=== PATIENT | female | born 1995 | race Caucasian/White ===

== ENCOUNTER 2022-04-17 12:00 | Outpatient (RCR) | payer BC, SELFPAY ==
[2022-03-31 12:19] VITALS: BMI 30.4
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
--- NOTE | 2022-04-02 16:43 | PC.NURSE ---
Case opened in treatment team.
--- NOTE | 2022-04-02 17:06 | PC.NURSE ---
I called and spoke with pt. Reviewed treatment plan. He said groups are going well, and that he continues to have the same depressive symptoms that he did when he started. Discussed aftercare. Pt said he has an appointment at [place] for [employer] in May, and that he has been told he wont get in with a med provider until 3 visits with the therapist. I agreed to attempt to get him in faster, as he is in [facility].
--- NOTE | 2022-04-06 12:10 | P.PNPSP_ITS ---
Subjective Subjective Date of Service: 04/06/22 Reason For Visit: bipolar Medical Problems Affecting Mental Status: No Interim History: Describes mood as ?not that great, about the same ?. Took Seroquel only 2 nights, reports side effects, ?made me feel really drugged, nauseous, with a headache ?. Continues with depressed mood, anxiety. States not finding PHP to be helpful. Denies SI, no safety concern. Medication Compliance: Yes Side effects from medications: Yes ([place] overmedicated, drugs, nauseous, headache with Seroquel. Stopped after) Attending Groups: Yes Review of Systems Acute medical concerns: No Medical Review of Systems: unchanged Review of Systems Review of Systems Yes all other systems are reviewed and are negative Constitutional: Reports no additional constitutional complaints Mental Status Exam Mental Status Exam Narrative: NAD. Fully alert and attentive during encounter. Denies SI at this time, no safety concerns. Patient Appearance: Appropriate Patient Orientation: Person, Place, Time and Situation Level of Consciousness: Appropriate Patient Behavior: Appropriate, Cooperative and Good Eye Contact Mood Description: Depressed and Anxious Affect Description: Flat Patient Cognition Impaired: No Ability to Follow Directions: Good Speech Pattern: Clear, Appropriate and Coherent Memory Description: Intact Hallucinations: None Delusions: Not Present Thought Process: Intact Thought Content: positive for Intact Depressive Symptoms: Increased Anxiety, Difficulty Sleeping, Loss of Int. in Activity, Feelings of Worthlessness, Hopelessness, Unhappiness, Increased Fatigue and Thoughts of /Suicide Judgement: Fair Diagnostics Vital Signs (24Hr): BMI result Body Mass Index 30.4 Assessment & Plan Assessment & Plan (1) Bipolar disorder, current episode depressed, severe, without psychotic features: Status: Acute Code(s): F31.4 - Bipolar disorder, current episode depressed, severe, without psychotic features Assessment and Plan: Patient presents with depressed/anxious mood, flat affect. Denies SI at this time, no safety concern. He reports that he feels no improvement since starting PHP. He reports he took quetiapine last Wednesday and Wednesday night, but had side effects of feeling ?really drugged, which triggered past trauma ?, nausea and a lingering headache. He stopped after 2 days. He states he continues feeling ?really depressed, with anxiety ?. He states he has not really learning any coping skills while in partial. He states that he already has a habits chart, a bullet journal, calendar, which he has found to be helpful. We discussed his current medication regimen, as well as other medications that may be beneficial as an adjunct of med. He is willing at this time to trial low-dose risperidone, 0.25 mg at bedtime. (2) Generalized anxiety disorder: Status: Acute Code(s): F41.1 - Generalized anxiety disorder Assessment and Plan: Patient continues with anxiety. He is willing at this time to trial low-dose risperidone, which also may help with anxiety at night. Plan 1. Continue with current [facility] plan of care. 2. Stop quetiapine. 3. Start risperidone 0.25 at bedtime. 4. Follow-up as per protocol. Patient educated on: diagnosis, medication risk/benefits and therapeutic strategies Informed Consent: understands Reason for contiued partial hosp. stay Substantial Risk for: harm to self, inability to function, rapid decompensation and med/psych decompensation Certification I certify that partial hospital treatment is medically necessary due to the symptoms and problems resulting from the patient's mental illness and the failure to treat the patient at the partial hospital level of care would likely result in the patient requiring inpatient psychiatric care which could not be prevented at a less intensive level of care. I spent minutes with the patient and/or on the patient floor today, greater than?50% of which was spent counseling/coordinating care. Discharge Plan Discharge Attending provider: Johnson Villela Medications: New risperidone 0.25 mg tablet 0.25 mg PO BEDTIME Qty: 7 0RF No Action montelukast [Singulair] 10 mg Tablet 10 mg PO BEDTIME lamotrigine 25 mg Tablet Extended Release 24hr 25 mg PO DAILY Rx Instructions: Take with 300 mg tab daily. lamotrigine 300 mg Tablet Extended Release 24hr 300 mg PO DAILY Vyvanse 10 mg Capsule 10 mg PO DAILY trazodone 100 mg Tablet 100 mg PO BEDTIME fexofenadine [Ramila] 180 mg Tablet 180 mg PO DAILY Label Comments: Patient stated they take this over the counter. Telehealth Telehealth Location of provider rendering services: practice address Location of patient: address on file Patient Identification confirmed using: Name, : Yes Telehealth method: video Patient verbally consented to treatment: Yes Patient verbally consented to billing insurance company: Yes Patient informed of any privacy concerns related to visit: Yes Minutes spent on Phone/Video with Pt.: 15
--- NOTE | 2022-04-07 11:43 | PC.NURSE ---
In-person appointment for medication management evaluation at [facility] ([facility]) at [address] [place] [address] in [place], [place], on May 07 at 9am.
--- NOTE | 2022-04-08 13:05 | PC.NURSE ---
I called and spoke to pt about the possibility of doing DBT. He said he might be interested. We discussed what it is and what it entails. I gave pt the number for GURMEET Singh, DBT coordinator at [facility] ([phone]). I told pt about the age 18-24 program that has openings at this time.
--- NOTE | 2022-04-10 11:05 | HO.PHPPROGNO ---
Subjective Subjective Date of Service: 04/10/22 Reason For Visit: bipolar Medical Problems Affecting Mental Status: No Interim History: Reports feeling ?not too bad, a little better ?. Continues with dysphoric mood, although feels slightly improved. Feels added risperidone is helping somewhat. Has been taking half dose, will start tonight taking full dose of 0.25. No SI/HI/AH/VH reported. Medication Compliance: Yes Side effects from medications: Yes (Feels tired from added risperidone.) Attending Groups: Yes Review of Systems Acute medical concerns: No Medical Review of Systems: unchanged Review of Systems Review of Systems Yes all other systems are reviewed and are negative Constitutional: Reports no additional constitutional complaints Mental Status Exam Mental Status Exam Narrative: NAD. Fully alert and attentive during encounter. No SI/HI/AH/VH, no safety concerns. Patient Appearance: Appropriate Patient Orientation: Person, Place, Time and Situation Level of Consciousness: Appropriate Patient Behavior: Appropriate, Cooperative and Good Eye Contact Mood Description: Depressed (Reports feels slightly improved.) and Anxious (Reports feels slightly improved.) Affect Description: Depressed and Anxious Patient Cognition Impaired: No Ability to Follow Directions: Good Speech Pattern: Clear, Appropriate, Coherent and Soft-Spoken Memory Description: Intact Hallucinations: None Delusions: Not Present Thought Process: Intact Thought Content: positive for Intact Depressive Symptoms: Increased Anxiety, Loss of Int. in Activity, Unhappiness and Increased Fatigue Judgement: Fair Diagnostics Vital Signs (24Hr): BMI result Body Mass Index 30.4 Assessment & Plan Assessment & Plan (1) Bipolar disorder, current episode depressed, severe, without psychotic features: Status: Acute Code(s): F31.4 - Bipolar disorder, current episode depressed, severe, without psychotic features Assessment and Plan: Reports feeling slightly improved regarding depression and anxiety symptoms at this time. No SI/HI, no safety concerns. Has been taking risperidone 0.25, has been cutting pill in half to take 0.12. Reports it does make him tired, but he feels no other side effects at this time, and it may slightly be improving mood. Willing to take full tab of 0.25 over the next week, with plan to reassess at that time. Patient reports he is extremely sensitive to side effects, and that taking it at very low dose to begin is helpful to minimize these. We discussed plan to possibly trial lurasidone, if no positive affect from risperidone. He stated he has heard of Latuda, and will consider it as an option after giving risperidone a full trial. (2) Generalized anxiety disorder: Status: Acute Code(s): F41.1 - Generalized anxiety disorder Assessment and Plan: Overall feels slight improvement. (3) Attention-deficit hyperactivity disorder, predominantly inattentive type: Status: Acute Code(s): F90.0 - Attention-deficit hyperactivity disorder, predominantly inattentive type Assessment and Plan: ADHD currently not a concern, takes medication vyvanse as prescribed. Plan 1. Continue with current [facility] plan of care. 2. Continue with risperidone 0.25 mg, patient will take full dose, as had been cutting tab in half for the previous 7 days. 3. A follow-up as per protocol. Patient educated on: diagnosis, medication risk/benefits and therapeutic strategies Informed Consent: understands Reason for contiued partial hosp. stay Substantial Risk for: harm to self, inability to function, rapid decompensation and med/psych decompensation Certification I certify that partial hospital treatment is medically necessary due to the symptoms and problems resulting from the patient's mental illness and the failure to treat the patient at the partial hospital level of care would likely result in the patient requiring inpatient psychiatric care which could not be prevented at a less intensive level of care. I spent minutes with the patient and/or on the patient floor today, greater than?50% of which was spent counseling/coordinating care. Discharge Plan Discharge Attending provider: Johnson Villela Additional Instructions: In-person intake appointment with Wandy Estrada, therapist at [facility] ([facility]) at [address] [place] [address] in [place], [place], on April 20, at 3pm. In-person appointment for medication management evaluation at [facility] ([facility]) at [address] [place] [address] in [place], [place], on May 07 at 9am. Medications: New risperidone 0.25 mg tablet 0.25 mg PO BEDTIME Qty: 7 0RF No Action montelukast [Singulair] 10 mg Tablet 10 mg PO BEDTIME lamotrigine 25 mg Tablet Extended Release 24hr 25 mg PO DAILY Rx Instructions: Take with 300 mg tab daily. lamotrigine 300 mg Tablet Extended Release 24hr 300 mg PO DAILY Vyvanse 10 mg Capsule 10 mg PO DAILY trazodone 100 mg Tablet 100 mg PO BEDTIME fexofenadine [Ramila] 180 mg Tablet 180 mg PO DAILY Label Comments: Patient stated they take this over the counter. Stand Alone Forms: Patient Portal Discharge page Telehealth Telehealth Location of provider rendering services: practice address Location of patient: address on file Patient Identification confirmed using: Name, : Yes Telehealth method: video Patient verbally consented to treatment: Yes Patient verbally consented to billing insurance company: Yes Patient informed of any privacy concerns related to visit: Yes Minutes spent on Phone/Video with Pt.: 15
--- NOTE | 2022-04-17 13:00 | P.PNPSP_ITS ---
Subjective Subjective Date of Service: 04/17/22 Reason For Visit: bipolar Medical Problems Affecting Mental Status: No Interim History: Describes mood as ?I am okay ?. Says no real improvement with depression, anxiety symptoms. Reports side effects from risperidone. No SI/HI reported, no safety concerns. Medication Compliance: Yes Side effects from medications: Yes (Reports risperidone has caused headache, nausea, difficulty pain attention,) Attending Groups: Yes Review of Systems Acute medical concerns: No Medical Review of Systems: unchanged Review of Systems Review of Systems Yes all other systems are reviewed and are negative Constitutional: Reports no additional constitutional complaints Mental Status Exam Mental Status Exam Narrative: NAD. Hygiene a No SI/HI/AH/VH, no safety concerns. Patient Appearance: Appropriate Patient Orientation: Person, Place, Time and Situation Level of Consciousness: Appropriate Patient Behavior: Appropriate, Cooperative and Good Eye Contact Mood Description: Appropriate, Depressed and Anxious Affect Description: Depressed and Flat Patient Cognition Impaired: No Ability to Follow Directions: Good Speech Pattern: Clear, Appropriate, Coherent and Soft-Spoken Memory Description: Intact Hallucinations: None Delusions: Not Present Thought Process: Intact Thought Content: positive for Intact Depressive Symptoms: Increased Anxiety, Loss of Int. in Activity and Unhappiness Judgement: Good Diagnostics Vital Signs (24Hr): BMI result Body Mass Index 30.4 Assessment & Plan Assessment & Plan (1) Bipolar disorder, current episode depressed, severe, without psychotic features: Status: Acute Code(s): F31.4 - Bipolar disorder, current episode depressed, severe, without psychotic features Assessment and Plan: Describes mood as ?I am okay ?. Says no real improvement with depression, anxiety symptoms. No SI/HI reported, no safety concerns. Reports side effects from risperidone. Reports feeling headache, nausea, difficulty paying attention, and involuntary muscle movements with the risperidone. We reviewed side effects of medication, and decided it would be best if he stop taking at this time. We reviewed medications trialed here, he has tried quetiapine and risperidone, both atypical antipsychotics, with no real benefit as well as side effects. He feels safe at this time. Today is his last day and program. He has upcoming appointment with new psychiatric provider. He will explore other medication options once he is working with new provider. He states that he has found participation in the groups to be helpful. (2) Generalized anxiety disorder: Status: Acute Code(s): F41.1 - Generalized anxiety disorder Plan 1. Patient appears stable for discharge from [facility] at this time. 2. Patient to follow-up with outpatient providers going forward. Patient educated on: diagnosis, medication risk/benefits and therapeutic strategies Informed Consent: understands Reason for contiued partial hosp. stay Substantial Risk for: stable for discharge Certification I certify that partial hospital treatment is medically necessary due to the symptoms and problems resulting from the patient's mental illness and the failure to treat the patient at the partial hospital level of care would likely result in the patient requiring inpatient psychiatric care which could not be prevented at a less intensive level of care. I spent minutes with the patient and/or on the patient floor today, greater than?50% of which was spent counseling/coordinating care. Discharge Plan Discharge Attending provider: Johnson Villela Additional Instructions: In-person intake appointment with Wandy Estrada, therapist at [facility] ([facility]) at [address] [place] [address] in [place], [place], on April 20, at 3pm. In-person appointment for medication management evaluation at [facility] ([facility]) at [address] [place] [address] in [place], [place], on May 07 at 9am. Medications: No Action montelukast [Singulair] 10 mg Tablet 10 mg PO BEDTIME lamotrigine 25 mg Tablet Extended Release 24hr 25 mg PO DAILY Rx Instructions: Take with 300 mg tab daily. lamotrigine 300 mg Tablet Extended Release 24hr 300 mg PO DAILY Vyvanse 10 mg Capsule 10 mg PO DAILY trazodone 100 mg Tablet 100 mg PO BEDTIME fexofenadine [Ramila] 180 mg Tablet 180 mg PO DAILY Label Comments: Patient stated they take this over the counter. Stand Alone Forms: Patient Portal Discharge page Telehealth Telehealth Location of provider rendering services: practice address Location of patient: address on file Patient Identification confirmed using: Name, : Yes Telehealth method: video Patient verbally consented to treatment: Yes Patient verbally consented to billing insurance company: Yes Patient informed of any privacy concerns related to visit: Yes Minutes spent on Phone/Video with Pt.: 15
--- NOTE | 2022-04-20 09:53 | PC.NURSE ---
Patient discharged from [facility] on 04/20/22. [employer] good about discharging from the program. Stated they were happy to get back to their regular sleep schedule as patient stated they are a night person. Denied SI or any safety issues.Reviewed patient medications with patient. Patient reports taking medications as prescribed.
== END 2022-04-17 23:59 | disposition home or self-care (01) ==
LOC: HO.PHPA 12:00
PROVIDERS: Visit Provider Psychiatry & Neurology Psychiatry
DX: F31.4 Bipolar disorder, current episode depressed, severe, without psychotic features (principal); F41.1 Generalized anxiety disorder; F90.0 Attention-deficit hyperactivity disorder, predominantly inattentive type; Z79.899 Other long term (current) drug therapy
CPT/HCPCS: 90791; 90853